=== PATIENT | male | born 1945 | race Caucasian/White ===

== ENCOUNTER 2016-11-24 03:38 | Inpatient (IN) | payer OTHER ==
[~2016-11-24] VITALS: Ht 172.7 cm; Wt 55.8 kg
--- NOTE | 2016-11-24 03:45 | NUR ---
PT A/O X4, BREATHING EFFORTLESSLY ON RA, C/O L NECK PAIN RADIATING TO L SHOULDER X 40MIN, PT STATES HE WOKE UP TO USE RESTROOM AND STARTING HAVING PAIN, PT DENIES INJURY OR TRAUMA, PT DENIES CHEST PAIN OR SOB AT THIS TIME, PT ON MONITOR IN GOWN, IV STARTED, LABS DRAWN, MD IN ROOM, WILL CONTINUE TO MONITOR.
[2016-11-24] MEDS ORDERED: ASPIRIN 81 MG TAB.CHEW ONE (03:52)
[2016-11-24] MEDS ORDERED: MORPHINE SULFATE INJ 2 MG/ML DISP.SYRIN ONE (03:56)
[2016-11-24] MEDS ORDERED: ONDANSETRON HCL/PF 4 MG/2 ML VIAL ONE (03:56)
[2016-11-24] MEDS ORDERED: MORPHINE SULFATE INJ 4 MG/ML DISP.SYRIN ONE (03:56)
[2016-11-24] MEDS ORDERED: ASPIRIN 81 MG TAB.CHEW PO ONE (04:00)
[2016-11-24] MEDS ORDERED: ONDANSETRON HCL/PF 4 MG/2 ML VIAL IV ONE (04:00)
[2016-11-24] MEDS ORDERED: MORPHINE SULFATE INJ 2 MG/ML DISP.SYRIN IV ONE (04:00)
[2016-11-24 04:09] LABS: BASOPHILS % (AUTO) 0.3 % (0.0-2.0); EOSINOPHILS # (AUTO) 0.2 /CMM (0.0-0.7); EOSINOPHILS % (AUTO) 2.5 % (0.0-6.0); HEMATOCRIT 39 % (39-51); HEMOGLOBIN 12.8 g/dL (13.5-17.5); LYMPHOCYTES # (AUTO) 2.7 /CMM (0.8-4.8); LYMPHOCYTES % (AUTO) 26.8 % (20.0-44.0); MEAN CORPUSCULAR HEMOGLOBIN 26 PG (26.0-33.0); MEAN CORPUSCULAR HGB CONC 33 g/dl (31.0-36.0); MEAN CORPUSCULAR VOLUME 80 fL (80-96); MONOCYTES # (AUTO) 0.7 /CMM (0.1-1.30); MONOCYTES % (AUTO) 6.8 % (2.0-12.0); NEUTROPHILS # (AUTO) 6.4 /CMM (1.8-8.9); NEUTROPHILS % (AUTO) 63.6 % (43.0-81.0); PLATELET COUNT (AUTO) 241 /CMM (150-450); RDW COEFFICIENT OF VARIATION 15.3 (11.5-15.0); RED BLOOD CELL COUNT(AUTO) 4.93 MIL/uL (4.5-6.0)
--- NOTE | 2016-11-24 04:19 | NUR ---
ATTEMPTED TO RETRIEVE OLD EKG FROM [facility]- [phone]. NO EKG AVAILABLE.
[2016-11-24 04:20] LABS: CALCIUM, SERUM 8.9 mg/dL (8.5-10.1); POTASSIUM 4.3 mmol/L (3.5-5.1)
[2016-11-24 04:29] LABS: TROPONIN I 0.029 ng/mL (0.00-0.056)
[2016-11-24] MEDS ORDERED: OMEG1CAP18 PO (05:13)
[2016-11-24] MEDS ORDERED: ASPI325T2 PO (05:13)
[2016-11-24] MEDS ORDERED: CYCL-343 PO (05:13)
[2016-11-24] MEDS ORDERED: ATOR40TA PO (05:13)
[2016-11-24] MEDS ORDERED: MULT1TAB73 PO (05:13)
[2016-11-24] MEDS ORDERED: CARV6.25 PO (05:13)
[2016-11-24] MEDS ORDERED: LISI10TA5 PO (05:13)
[2016-11-24 05:30] VITALS: BP 126/73
--- NOTE | 2016-11-24 05:40 | NUR ---
MEAL MILLER ADMIN NOTES PT IS A/O X3. NO SIGNS OF SOB OR DISTRESS. BREATHING IS UNLABORED AND EVEN. DENIES PAIN AT THIS MOMENT. TELE MONITOR SHOWING SR 72. O2 ON ROOM AIR AT 99%. SKIN IS INTACT ONLY MINOR SCABBING ON NOSE. ADMITTING ORDERS WERE GIVEN AND CARRIED OUT. WILL CONTINUE TO MONITOR PT AND ENDORSE TO DAY SHIFT.
[2016-11-24 06:00] VITALS: BP 126/73
[2016-11-24] MEDS ORDERED: ACETAMINOPHEN 325 MG TABLET PO PRN (06:00)
[2016-11-24] MEDS ORDERED: HYDROCODONE/APAP 5/325MG 1 EACH TABLET PO PRN (06:00)
--- NOTE | 2016-11-24 07:27 | NUR ---
AM RN NOTE Received patient sleeping comfortably in his bed no acute distress noted. No SOB noted resp even and non-labored. On tele monitor, SR 86. IV sit intact and patent. Bed in low locked position. Will continue to monitor.
[2016-11-24 08:00] VITALS: BP 120/66
[2016-11-24] MEDS ORDERED: ASPIRIN 325 MG TABLET PO SCH (09:00)
[2016-11-24] MEDS ORDERED: ATORVASTATIN 40 MG TABLET PO SCH (09:00)
[2016-11-24] MEDS ORDERED: CARVEDILOL 6.25 MG TABLET PO SCH (09:00)
[2016-11-24] MEDS ORDERED: LISINOPRIL (10MG) 10 MG TABLET PO SCH (09:00)
[2016-11-24] MEDS ORDERED: HYDR-552 PO (09:07)
--- NOTE | 2016-11-24 09:30 | NUR ---
AM RN NOTE Patient awake, A/O X4 verbally responsive. Seen and assessed by Dr. Beckwith with discharge home order.
[2016-11-24] MEDS ORDERED: MULTIVITAMINS,THERAGRAN 1 UDTAB TABLET PO SCH (09:45)
--- NOTE | 2016-11-24 09:55 | NUR ---
AM RN NOTE Patient A/O X4, denies any pain or discomfort at this time. Discharge instructions on medications and teachings given, pt verbalize understanding. Pt refused to take scheduled medications at this time, stated he will take them at home. HL and ID band removed. Belongings endorsed and signed. Pt discharged/left unit at this time as accompanied by Nephew (Caden) in his private car.
[2016-11-24] MEDS ORDERED: CYCLOBENZAPRINE 10 MG TABLET PO PRN (22:00)
== END 2016-11-24 09:55 | disposition home or self-care (01) | DRG 552 ==
LOC: ER 03:40 → TELE 05:10
PROVIDERS: ADMIT Internal Medicine; ATTEND Internal Medicine
DX: M54.2 Cervicalgia (principal); I10 Essential (primary) hypertension; E78.5 Hyperlipidemia, unspecified; Z95.1 Presence of aortocoronary bypass graft; I25.10 Atherosclerotic heart disease of native coronary artery without angina pectoris; Z88.2 Allergy status to sulfonamides; M54.9 Dorsalgia, unspecified
CPT/HCPCS: 36415; 71010-TC; 80048-TC; 84484-TC; 85025-TC; 85378-TC; A4606; J2270; J2405; Z7610